=== PATIENT | male | born 1985 | race Caucasian/White ===

== ENCOUNTER 2019-10-02 10:41 | Emergency (ER) | payer OTHER ==
[~2019-10-02] VITALS: Ht 170.2 cm; Wt 74.4 kg
[2019-10-02] MEDS ORDERED: HYDROmorphone 2 MG/ML VIAL ONE (10:59)
[2019-10-02] MEDS ORDERED: ONDANSETRON PF 4 MG/2 ML VIAL. ONE (10:59)
[2019-10-02] MEDS ORDERED: IV RINGERS,LACTATED 1000ML 1,000 ML IV ONE (11:00)
[2019-10-02] MEDS ORDERED: HYDROmorphone 2 MG/ML VIAL IV ONE (11:00)
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
[2019-10-02] MEDS ORDERED: ONDANSETRON PF 4 MG/2 ML VIAL. IVP ONE (11:15)
[2019-10-02] MEDS ORDERED: BACITRACIN/POLYMYXIN B TOPICAL OINT 28.3GM TUBE. TP ONE (11:30)
[2019-10-02] MEDS ORDERED: OXYC-325 PO (11:31)
[2019-10-02 11:59] VITALS: BP 144/70
== END 2019-10-02 12:00 | disposition home or self-care (01) ==
LOC: ER 10:41
DX: T23.251A Burn of second degree of right palm, initial encounter (principal); T22.212A Burn of second degree of left forearm, initial encounter; T23.252A Burn of second degree of left palm, initial encounter; T20.10XA Burn of first degree of head, face, and neck, unspecified site, initial encounter; T31.0 Burns involving less than 10% of body surface; Z90.89 Acquired absence of other organs; I10 Essential (primary) hypertension; X08.8XXA Exposure to other specified smoke, fire and flames, initial encounter; Y93.89 Activity, other specified; Y92.89 Other specified places as the place of occurrence of the external cause; Y99.8 Other external cause status
CPT/HCPCS: 16020; 96374; 96375; 99285; J1170; J2405; J7120